=== PATIENT | female | born 1995 | race Two or more races ===

== ENCOUNTER 2021-05-18 00:19 | Emergency (ER) | payer OTHER ==
[~2021-05-18] VITALS: Ht 157.5 cm; Wt 99.5 kg
[2021-05-18] MEDS ORDERED: LIDOCAINE 1% 10 ML VIAL ID ONE (01:15)
[2021-05-18] MEDS ORDERED: MORPHINE SULFATE 4 MG/ML SYRINGE IM ONE (01:15)
[2021-05-18] MEDS ORDERED: CEPHALEXIN MONOHYDRATE 500 MG CAPSULE PO ONE (02:00)
[2021-05-18 02:45] VITALS: BP 106/76
== END 2021-05-18 02:57 | disposition home or self-care (01) ==
LOC: EMS 00:21
DX: S62.616A Displaced fracture of proximal phalanx of right little finger, initial encounter for closed fracture (principal); W01.0XXA Fall on same level from slipping, tripping and stumbling without subsequent striking against object, initial encounter; Y93.89 Activity, other specified; Y92.89 Other specified places as the place of occurrence of the external cause; Y99.8 Other external cause status
CPT/HCPCS: 26725; 73130; 96372; 99284; J2270; J3490